=== PATIENT | female | born 2000 | race Caucasian/White ===

== ENCOUNTER 2019-12-01 11:40 | Emergency (ER) | payer MEDICAID ==
[~2019-12-01] VITALS: Ht 157.5 cm; Wt 64.0 kg
[2019-12-01 13:59] LABS: CLARITY URINE TURBID (CLEAR); COLOR URINE YELLOW (YELLOW); KETONES URINE 1+ (NEGATIVE); LEUKOCYTE ESTERASE URINE 3+ (NEGATIVE); NITRITE URINE POSITIVE (NEGATIVE); OCCULT BLOOD URINE 2+ (NEGATIVE); PROTEIN URINE 2+ (NEGATIVE); UROBILINOGEN URINE 0.2 E.U./dL (0.2-1.0)
[2019-12-01 15:17] LABS: HEMATOCRIT. 37.4 % (36.0-48.0); HEMOGLOBIN. 13.2 g/dL (12.0-16.0); MEAN CORPUSCULAR HEMOGLOBIN 30.7 pg (28.0-32.0); MEAN CORPUSCULAR VOLUME 87.2 fL (81.0-99.0); MEAN PLATELET VOLUME 6.9 fl (7.4-10.4); PLATELET 307 x1000/uL (130-400); RED BLOOD CELL COUNT 4.29 mill/uL (4.2-5.4); RED CELL DISTRIBUTION WIDTH 13.3 % (11.6-14.6)
[2019-12-01 15:22] LABS: CHLORIDE 104 mEq/L (98-107)
[2019-12-01 15:26] LABS: PROTHROMBIN TIME 10.9 sec (9.6-11.0)
[2019-12-01] MEDS ORDERED: CEPHALEXIN 250MG CAPSULE PO ONE (15:45)
[2019-12-01 16:05] LABS: PLATELET ESTIMATE NORMAL
[2019-12-01 16:19] LABS: B-HCG QUANTITATIVE 64865 mIU/mL (<3)
[2019-12-01 17:11] VITALS: BP 105/68
== END 2019-12-01 17:13 | disposition home or self-care (01) ==
LOC: ER 12:05
DX: O46.92 Antepartum hemorrhage, unspecified, second trimester (principal); O23.32 Infections of other parts of urinary tract in pregnancy, second trimester; I49.9 Cardiac arrhythmia, unspecified; Z3A.15 15 weeks gestation of pregnancy
CPT/HCPCS: 36415; 76805; 80053; 81003; 84702; 85025; 86850; 86900; 87077; 87186; 93005; 99284

== ENCOUNTER 2022-04-26 17:05 | Inpatient (IN) | payer OTHER ==
[~2022-04-26] VITALS: Ht 152.4 cm; Wt 77.1 kg
[2022-04-26 18:17] LABS: CLARITY URINE TURBID (CLEAR); COLOR URINE RED (YELLOW); KETONES URINE NEGATIVE (NEGATIVE); LEUKOCYTE ESTERASE URINE 3+ (NEGATIVE); NITRITE URINE NEGATIVE (NEGATIVE); OCCULT BLOOD URINE 3+ (NEGATIVE); PH URINE 5.5 (4.5-8.0); PROTEIN URINE 2+ (NEGATIVE); SPECIFIC GRAVITY URINE 1.022 (1.005-1.030); UROBILINOGEN URINE 0.2 E.U./dL (0.2-1.0)
[2022-04-26] MEDS ORDERED: NALOXONE HCL 0.4 MG/ML 1ML VIAL IM PRN (18:30)
[2022-04-26] MEDS ORDERED: MISOPROSTOL 100MCG TABLET VG NR (18:30)
[2022-04-26] MEDS ORDERED: CARBOPROST TROMETHAMINE 250 MCG/ML AMPUL IM PRN (18:30)
[2022-04-26] MEDS ORDERED: METHYLERGONOVINE MALEATE 0.2 MG/ML IM PRN (18:30)
[2022-04-26] MEDS ORDERED: BUTORPHANOL TARTRATE 2 MG/ML VIAL IM PRN (18:30)
[2022-04-26] MEDS ORDERED: LIDOCAINE HCL 1% 20ML VIAL (Pyxis) INJ INFIL SCH (18:30)
[2022-04-26] MEDS: LACTATED RINGERS 1,000 ML IV SCH ×2 (18:53→19:37)
[2022-04-26 19:25] LABS: BASOPHILS % 0.2 % (0.0-2.0); EOSINOPHILS % 0.2 % (0.0-5.0); HEMATOCRIT. 36.7 % (36.0-48.0); HEMOGLOBIN. 12.6 g/dL (12.0-16.0); LYMPHOCYTES % 15.5 % (20.0-50.0); MEAN CORPUSCULAR HEMOGLOBIN 30.3 pg (28.0-32.0); MEAN CORPUSCULAR VOLUME 88.5 fL (81.0-99.0); MEAN PLATELET VOLUME 7.5 fl (7.4-10.4); MONOCYTES % 4.6 % (2.0-8.0); NEUTROPHILS % 79.5 % (40.0-76.0); PLATELET 255 x1000/uL (130-400); RED BLOOD CELL COUNT 4.15 mill/uL (4.2-5.4); RED CELL DISTRIBUTION WIDTH 13.9 % (11.6-14.6)
[2022-04-26 19:32] LABS: PARTIAL THROMBOPLASTIN TIME 28.2 sec (23.4-31.0); PROTHROMBIN TIME 10.3 sec (9.6-11.0)
[2022-04-26 20:40] LABS: HEPATITIS B SURFACE ANTIGEN NEGATIVE
[2022-04-26] MEDS ORDERED: IBUPROFEN 800MG TABLET PO PRN (21:00)
[2022-04-26] MEDS ORDERED: IBUPROFEN 400MG TABLET PO PRN (21:00)
[2022-04-26] MEDS ORDERED: BENZOCAINE/LANOLIN/ALOE VERA SPRAY TOP PRN (21:00)
[2022-04-26] MEDS: OXYTOCIN 30 UNITS/500ML NS PMX 500 ML IV SCH ×2 (21:22→22:24)
[2022-04-26 22:28] LABS: *AMPHETAMINES SCREEN URINE NEGATIVE (NEGATIVE); *BARBITURATES SCREEN URINE NEGATIVE (NEGATIVE); *BENZODIAZEPINES SCREEN URINE NEGATIVE (NEGATIVE); *COCAINE SCREEN URINE NEGATIVE (NEGATIVE); CANNABINOID URINE SCREEN NEGATIVE (NEGATIVE); METHADONE URINE SCREEN NEGATIVE (NEGATIVE); OPIATES URINE SCREEN NEGATIVE (NEGATIVE); PHENCYCLIDINE URINE SCREEN NEGATIVE (NEGATIVE)
[2022-04-26 22:55] VITALS: BP 111/61
[2022-04-27 04:00] VITALS: BP 97/57
[2022-04-27 06:49] LABS: BASOPHILS % 0.2 % (0.0-2.0); HEMOGLOBIN. 11.6 g/dL (12.0-16.0); LYMPHOCYTES % 16.9 % (20.0-50.0); MEAN CORPUSCULAR HEMOGLOBIN 30.7 pg (28.0-32.0); MEAN CORPUSCULAR VOLUME 87.5 fL (81.0-99.0); MEAN PLATELET VOLUME 7.5 fl (7.4-10.4); MONOCYTES % 5.4 % (2.0-8.0); NEUTROPHILS % 77.5 % (40.0-76.0); PLATELET 229 x1000/uL (130-400); RED BLOOD CELL COUNT 3.78 mill/uL (4.2-5.4); RED CELL DISTRIBUTION WIDTH 13.9 % (11.6-14.6)
[2022-04-27 08:15] VITALS: BP 100/54
[2022-04-27] MEDS: FERROUS SULFATE 325MG TABLET PO SCH ×3 (09:01→18:10)
[2022-04-27] MEDS: PRENATAL VIT/FE FUMARATE/FA TABLET PO SCH (09:01)
[2022-04-27 16:00] VITALS: BP 98/55
[2022-04-27 20:00] VITALS: BP 105/62
[2022-04-27] MEDS ORDERED: TETANUS, DIPHTHERIA, PERTUSSIS VAC/PF 0.5ML (>10YR OLD) IM ONE (21:00)
[2022-04-28 04:00] VITALS: BP 100/76
[2022-04-28 05:32] LABS: BASOPHILS % 0.3 % (0.0-2.0); HEMATOCRIT. 32.2 % (36.0-48.0); HEMOGLOBIN. 11.2 g/dL (12.0-16.0); LYMPHOCYTES % 39.1 % (20.0-50.0); MEAN CORPUSCULAR VOLUME 88.8 fL (81.0-99.0); MEAN PLATELET VOLUME 7.1 fl (7.4-10.4); MONOCYTES % 5.7 % (2.0-8.0); NEUTROPHILS % 53.9 % (40.0-76.0); PLATELET 253 x1000/uL (130-400); RED BLOOD CELL COUNT 3.63 mill/uL (4.2-5.4); RED CELL DISTRIBUTION WIDTH 13.8 % (11.6-14.6)
[2022-04-28] MEDS: FERROUS SULFATE 325MG TABLET PO SCH (07:30)
[2022-04-28 08:00] VITALS: BP 103/65
[2022-04-28] MEDS: PRENATAL VIT/FE FUMARATE/FA TABLET PO SCH (09:00)
== END 2022-04-28 14:55 | disposition home or self-care (01) | DRG 560 ==
LOC: 8 EST LDRP 17:05 → OBSVTOIN 17:05 → 8EST 22:55
PROVIDERS: ADMIT Obstetrics & Gynecology; ATTEND Obstetrics & Gynecology
PROC: 10E0XZZ Delivery of Products of Conception, External Approach (ICD-10-PCS; principal; 2022-04-26)
PROC: 0KQM0ZZ Repair Perineum Muscle, Open Approach (ICD-10-PCS; 2022-04-26)
DX: O70.1 Second degree perineal laceration during delivery (principal); Z37.0 Single live birth; D62 Acute posthemorrhagic anemia; O99.12 Other diseases of the blood and blood-forming organs and certain disorders involving the immune mechanism complicating childbirth; O99.02 Anemia complicating childbirth; Z20.822 Contact with and (suspected) exposure to COVID-19; Z30.2 Encounter for sterilization; Z3A.38 38 weeks gestation of pregnancy; D72.829 Elevated white blood cell count, unspecified
CPT/HCPCS: 36415; 80305; 81003; 85025; 86592; 86703; 86762; 86850; 86900; 87186; 87340; 87426; 90715; 99281; J3490; J7120; J2590